=== PATIENT | female | born 1985 | race Two or more races ===

== ENCOUNTER 2017-07-22 16:02 | Emergency (ER) | payer SELFPAY ==
[~2017-07-22] VITALS: Ht 167.6 cm; Wt 81.6 kg
--- NOTE | 2017-07-22 16:20 | NUR ---
PRESENTS TO ER C/O SOB SINCE LAST NIGHT. ALSO HAS NON PRODUCTIVE COUGH, NO RELIEF WITH VENTOLIN. AOX 4. BREATHING EVEN, SLIGHTLY LABORED AND SHORT OF BREATH. NAD, VITALS STABLE. SAFETY AND COMFORT MEASURES IN PLACE. AWAITING MD ORDERS.
[2017-07-22] MEDS ORDERED: IPRATROPIUM NEB FS 0.5 MG/2.5 ML AMPUL.NEB NEB ONE (16:30)
[2017-07-22] MEDS ORDERED: ALBUTEROL FS 2.5 MG/3 ML VIAL.NEB NEB ONE (16:30)
[2017-07-22] MEDS ORDERED: HYDROCODONE BIT/HOMATROPINE 5 ML UDC PO ONE (16:30)
[2017-07-22] MEDS ORDERED: HYDROCODONE BIT/HOMATROPINE 5 ML UDC ONE (16:31)
--- NOTE | 2017-07-22 16:33 | NUR ---
MEDICATED PATIENT PER MD ORDERS.
[2017-07-22] MEDS ORDERED: ALBUTEROL FS 2.5 MG/3 ML VIAL.NEB ONE (16:40)
[2017-07-22] MEDS ORDERED: IPRATROPIUM NEB FS 0.5 MG/2.5 ML AMPUL.NEB ONE (16:40)
--- NOTE | 2017-07-22 16:48 | NUR ---
RT AT BEDSIDE FOR BREATHING TX.
[2017-07-22] MEDS ORDERED: predniSONE 20 MG TABLET PO ONE (17:30)
[2017-07-22] MEDS ORDERED: RACEPINEPHRINE HCL 2.25% NEB 0.5 ML VIAL.NEB IH ONE ×2 (17:30→17:41)
[2017-07-22] MEDS ORDERED: predniSONE 20 MG TABLET ONE (17:32)
--- NOTE | 2017-07-22 17:42 | NUR ---
RT AT BEDSIDE FOR SECOND TX.
--- NOTE | 2017-07-22 18:28 | NUR ---
PATIENT TAKEN TO XRAY VIA WHEELCHAIR.
--- NOTE | 2017-07-22 18:33 | NUR ---
PATIENT RETURNED FROM XRAY
--- NOTE | 2017-07-22 19:20 | NUR ---
REPORT GIVEN TO [facility]ER HAULER PUSHER, ED FOR ERASMO.
--- NOTE | 2017-07-22 19:42 | NUR ---
Patient discharged to home in stable condition. Written and verbal after care instructions given. Patient verbalizes understanding of instruction. ambulatory with a steady gait noted. pt aaox4 no acute distress noted, resp even and unlabored. pt denies pain or discomfort at this time.
[2017-07-22 19:43] VITALS: BP 127/75
== END 2017-07-22 19:44 | disposition home or self-care (01) ==
LOC: ER 16:04
DX: J05.0 Acute obstructive laryngitis [croup] (principal); J45.909 Unspecified asthma, uncomplicated; A37.90 Whooping cough, unspecified species without pneumonia
CPT/HCPCS: 70360-TC; 71045-TC; A4606; Z7610